=== PATIENT | male | born 1995 | race Caucasian/White ===

== ENCOUNTER 2020-06-01 03:48 | Inpatient (IN) | payer OTHER ==
[~2020-06-01] VITALS: Ht 175.3 cm; Wt 109.0 kg
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
[2020-06-01 04:11] LABS: BASO % 1 % (0-3); EOS # 0.5 x10^3/uL (0.0-0.7); EOS % 5 % (0-3); HEMATOCRIT 42.8 % (39.0-53.0); HEMOGLOBIN 14.5 g/dL (13.0-17.5); LYMPH # 2.8 x10^3/uL (1.0-4.8); LYMPH % 30 % (24-48); MEAN CORPUSCULAR HEMOGLOBIN 25 pg (25-35); MEAN CORPUSCULAR HGB CONC 34 g/dL (31-37); MEAN CORPUSCULAR VOLUME 75 fL (79-100); MONO # 0.5 x10^3/uL (0.0-1.1); MONO % 5 % (0-9); NEUT # 5.6 x10^3/uL (1.8-7.7); NEUT % 60 % (31-73); PLATELET COUNT 200 x10^3/uL (140-400); RED BLOOD COUNT 5.74 x10^6/uL (4.30-5.70); RED CELL DISTRIBUTION WIDTH 15.1 % (11.5-14.5); WHITE BLOOD COUNT 9.5 x10^3/uL (4.0-11.0)
[2020-06-01] MEDS ORDERED: ONDANSETRON PF 4 MG/2 ML VIAL. IVP ONE (04:15)
[2020-06-01] MEDS ORDERED: IV NORMAL SALINE 1000ML BAG 1,000 ML IV SCH (04:15)
[2020-06-01 04:20] LABS: CREATININE 1.3 mg/dL (0.7-1.3); GFR 67.8; POTASSIUM 4.1 mmol/L (3.5-5.1)
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
--- NOTE | 2020-06-01 04:24 | EKG ---
[facility] [address] [place] [address] Test Date: 2020-06-01 Test Time: 04:07:09 Pat Name: LINDA STODDARD Department: Room: Gender: M [employer]: : 1995 Requested By: ED BENJAMIN Order Number: [id number] Reading MD: Measurements Intervals [place] Rate: 86 P: 35 ME: 154 QRS: 8 QRSD: 92 T: 27 QT: 336 QTc: 405 Interpretive Statements SINUS RHYTHM INCOMPLETE RIGHT BUNDLE BRANCH BLOCK OTHERWISE NORMAL ECG RI6.02 No previous ECG available for comparison
[2020-06-01 04:27] LABS: ALBUMIN 3.9 g/dL (3.4-5.0); DIRECT BILIRUBIN 0.1 mg/dL (0.0-0.2); TOTAL BILIRUBIN 0.3 mg/dL (0.2-1.0); TOTAL PROTEIN 7.7 g/dL (6.4-8.2)
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
[2020-06-01 05:09] LABS: BILIRUBIN,URINE NEGATIVE (NEG); CLARITY,URINE CLEAR; COLOR,URINE YELLOW; NITRITE,URINE NEGATIVE (NEG); PH,URINE 5.5 (<5.0-8.0); PROTEIN,URINE 30 mg/dL (NEG-TRACE); UROBILINOGEN,URINE 0.2 mg/dL (0.2 mg/dL)
[2020-06-01 05:14] LABS: BACTERIA,URINE 0 /HPF (0-FEW); RBC,URINE 20-40 /HPF (0-2); WBC,URINE 0 /HPF (0-4)
[2020-06-01 05:15] LABS: BARBITURATES NEG (NEG); BENZODIAZEPINES NEG (NEG); CANNABINOIDS NEG (NEG); COCAINE NEG (NEG); METHADONE NEG (NEG); OPIATES NEG (NEG); PHENCYCLIDINE NEG (NEG)
[2020-06-01] MEDS ORDERED: IOHEXOL 300 MG/ML 100ML VIAL. IV ONE (05:15)
[2020-06-01] MEDS ORDERED: CONTRAST GIVEN. MC PRN (05:15)
[2020-06-01] MEDS ORDERED: MORPHINE SULFATE 4 MG/ML VIAL. IV ONE (05:15)
[2020-06-01 05:16] LABS: AMPHETAMINE/METHAMPHETAMINE NEG (NEG)
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
[2020-06-01] MEDS ORDERED: ONDANSETRON PF 4 MG/2 ML VIAL. IV PRN (06:00)
[2020-06-01] MEDS ORDERED: MORPHINE SULFATE 4 MG/ML VIAL. IV PRN (06:00)
[2020-06-01] MEDS ORDERED: KETOROLAC 30 MG/ML VIAL. IVP ONE (08:30)
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
[2020-06-01] MEDS ORDERED: ACETAMINOPHEN 325 MG TABLET. PO ONE (09:00)
[2020-06-01 11:09] VITALS: BP 143/89
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
== END 2020-06-01 11:00 | disposition home or self-care (01) | DRG 605 ==
LOC: ER 03:48 → 6 SOUTH 06:13
PROVIDERS: ADMIT Internal Medicine; ATTEND Internal Medicine
DX: S30.1XXA Contusion of abdominal wall, initial encounter (principal); F43.10 Post-traumatic stress disorder, unspecified; G89.29 Other chronic pain; V43.52XA Car driver injured in collision with other type car in traffic accident, initial encounter; Y92.410 Unspecified street and highway as the place of occurrence of the external cause; M54.5 Low back pain
CPT/HCPCS: 36415; 71045; 71260; 73030; 73080; 74177; 80048; 80076; 80307; 81001; 85025; 85610; 85730; 93005; 96361; 96374; G0480; J1885; J7030; Q9967; 99285-25; G0378